=== PATIENT | male | born 1995 | race Caucasian/White ===

== ENCOUNTER 2019-07-14 06:44 | Emergency (ER) | payer SELFPAY ==
[~2019-07-14] VITALS: Ht 170.2 cm; Wt 91.7 kg
[2019-07-14 07:19] VITALS: BP 126/60
[2019-07-14] MEDS ORDERED: BACITRACIN ZINC OINT UDPKT TOP ONE (08:00)
[2019-07-14] MEDS ORDERED: LIDOCAINE HCL 2% JELLY 5ML TOP ONE (08:00)
== END 2019-07-14 08:45 | disposition home or self-care (01) ==
LOC: ER 06:44
DX: S50.812A Abrasion of left forearm, initial encounter (principal); F12.10 Cannabis abuse, uncomplicated; W18.39XA Other fall on same level, initial encounter; Y93.89 Activity, other specified; Y92.89 Other specified places as the place of occurrence of the external cause; Y99.8 Other external cause status
CPT/HCPCS: 99283